=== PATIENT | male | born 1955 | race Caucasian/White ===

== ENCOUNTER 2020-02-06 13:51 | Outpatient (CLI) | payer MEDICARE | END 2020-02-06 13:52 | disposition critical access hospital (66) | LOC: EMS 13:51 | PROVIDERS: ATTEND Surgery | DX: R51 Headache (principal); R11.0 Nausea; R42 Dizziness and giddiness | CPT/HCPCS: A0425; A0427 ==

== ENCOUNTER 2020-02-06 14:19 | Emergency (ER) | payer MEDICARE, OTHER ==
[2020-02-06 15:00] VITALS: BP 184/63
--- NOTE | 2020-02-06 15:09 | ED Physician Documentation ---
PD HPI HEADACHE - Stated complaint Stated Complaint: RUTH - Chief complaint Chief Complaint: Neuro - History obtained from History obtained from: Patient (64-year-old male patient brought in by EMS today for sudden onset headache while at home This occurred twice, rated the pain as 10 on a 10 both times. The first episode occurred, the pain started the top of his head and then went to the front forehead region and into the back of his head, he stated that he felt so uncomfortable that he laid down on his shop floor and covered himself with his jacket until the pain subsided which he said took approximately 25 minutes. He said he then tried to stand up to go about working in his shop and the pain returned the second time. EMS was then called and brought the pt into [facility]. In the ER today presents with a headache now rated 2 out of 10. He is keeping his eyes closed as he states "it just feels better, not because they hurt or the light bothers them". He does admit to some nausea.) Review of Systems Constitutional: denies: Fever, Chills Eyes: denies: Loss of vision, Decreased vision Ears: reports: Reviewed and negative Nose: reports: Reviewed and negative Throat: reports: Reviewed and negative Cardiac: denies: Chest pain / pressure, Palpitations Respiratory: reports: Reviewed and negative GI: reports: Nausea, Vomiting : reports: Reviewed and negative Neurologic: reports: Headache PD PAST MEDICAL HISTORY - Past Medical History Past Medical History: No - Past Surgical History Past Surgical History: No - Allergies Allergies/Adverse Reactions: Allergies Allergy/AdvReac Type Severity Reaction Status Date / Time Bfpqxqp-Qdh-Bqs Reductase Allergy Unknown Verified 02/06/20 14:31 Inhibitor - Social History Does the pt smoke?: No Smoking Status: Never smoker Does the pt drink ETOH?: Yes Does the pt have substance abuse?: No - POLST Patient has POLST: No PD ED PE NORMAL - General General: Alert and oriented X 3, Well developed/nourished, Other - HEENT HEENT: Atraumatic, PERRL, EOMI, Moist mucous membranes - Respiratory Respiratory: No respiratory distress Results - Vitals Vitals: Vital Signs - 24 hr 02/06/20 02/06/20 14:31 14:55 Temperature 36.5 C Heart Rate 74 Respiratory 16 Rate Blood Pressure 173/86 H 184/63 H O2 Saturation 100 Oxygen O2 Source Room air - Labs Labs: Laboratory Tests 02/06/20 02/06/20 02/06/20 15:32 15:32 15:32 WBC 10.5 RBC 4.84 Hgb 14.6 Hct 43.8 MCV 90.5 MCH 30.2 MCHC 33.3 RDW 14.2 Plt Count 272 MPV 10.0 Neut # (Auto) 8.8 H Lymph # (Auto) 1.1 L [place] # (Auto) 0.5 Eos # (Auto) 0.0 Baso # (Auto) 0.1 Absolute Nucleated RBC 0.00 Nucleated RBC % 0.0 PT 12.0 INR 1.1 Sodium 137 Potassium 3.7 Chloride 103 Carbon Dioxide 24 Anion Gap 10.0 BUN 16 Creatinine 1.1 Estimated GFR (MDRD) 67 L Glucose 142 H Calcium 8.9 PD MEDICAL DECISION MAKING - ED course Complexity details: other (While speaking to the patient and his my initial evaluation, the patient became very nauseous and said he was going to vomit. He then proceeded to vomit into a garbage can somewhat projectile. And stated the pain in his head was not increased greatly with the vomiting. He vomited twice at this episode. At this point I decided to order a head CT immediately and IV that included lab work. The patient was immediately rolled into Radiology a head CT was performed and the radiologist came and notified me that immediately that he had a subarachnoid bleed. At this point I went & consulted with Dr. Susie Coelho who agreed to take over care of this patient. ) - Consults Consults: Discussed case with (Dr Abbie Coelho, who agreed to assume care of the pt. ) Departure - Departure Disposition: 02 Transfer Acute Care Hosp Clinical Impression: Subarachnoid hemorrhage Condition: Critical Discharge Date/Time: 02/06/20 16:39
[2020-02-06] MEDS ORDERED: PROMETHAZINE INJ 25 MG in SODIUM CHLORIDE 0.9% 50 ML IV STA (15:36)
[2020-02-06 15:38] LABS: BASOPHILS # (AUTO) 0.1 10^3/uL (0.0-0.1); BASOPHILS % (AUTO) 0.5 %; EOSINOPHILS % (AUTO) 0.2 %; HGB - HEMOGLOBIN 14.6 g/dL (14.0-18.0); LYMPHOCYTES # (AUTO) 1.1 10^3/uL (1.5-3.5); LYMPHOCYTES % (AUTO) 10.6 %; MEAN CORPUSCULAR HEMOGLOBIN 30.2 pg (27.0-31.0); MEAN CORPUSCULAR HGB CONC 33.3 g/dL (32.0-36.0); MEAN CORPUSCULAR VOLUME 90.5 fL (80.0-94.0); MONOCYTES # (AUTO) 0.5 10^3/uL (0.0-1.0); MONOCYTES % (AUTO) 4.8 %; NEUTROPHILS # (AUTO) 8.8 10^3/uL (1.5-6.6); NEUTROPHILS % (AUTO) 83.4 %; PLT - PLATELET COUNT 272 10^3/uL (130-450); RED BLOOD COUNT 4.84 10^6/uL (4.70-6.10); RED CELL DISTRIBUTION WIDTH 14.2 % (12.0-15.0); WHITE BLOOD COUNT 10.5 x10^3/uL (4.8-10.8)
[2020-02-06 15:41] LABS: INR 1.1 (0.8-1.2)
[2020-02-06 15:45] LABS: CALCIUM 8.9 mg/dL (8.5-10.3); CREATININE 1.1 mg/dL (0.6-1.2)
[2020-02-06] MEDS ORDERED: DEXAMETHASONE 10 MG/ML VIAL IV STA (15:54)
--- NOTE | 2020-02-06 15:55 | CT Report ---
Reason: new onset headache, vomiting. Procedure Date: 02/06/2020 Accession Number: [id number] / [id number] Procedure: CT - HEAD WO CPT Code: Final Report FULL RESULT: EXAM: CT HEAD EXAM DATE: 02/06/2020 03:40 PM. CLINICAL HISTORY: New onset headache, vomiting. COMPARISON: None. TECHNIQUE: Multiaxial CT images were obtained from the foramen magnum to the vertex. Reformats: Sagittal and coronal. IV contrast: None. In accordance with CT protocol optimization, one or more of the following dose reduction techniques were utilized for this exam: automated exposure control, adjustment of mA and/or KV based on patient size, or use of iterative reconstructive technique. FINDINGS: Parenchyma: No intraparenchymal hemorrhage. No evidence of mass, midline shift. Benavides-white differentiation is distinct. Extraaxial Spaces: There is hyperdensity outlining the basal cisterns and sulci, consistent with subarachnoid hemorrhage, Hounsfield units approximately 50. A small amount of hemorrhage is seen in the fourth ventricle and prepontine cisterns. No subdural or epidural collections identified. Ventricles: Ventricles are symmetrically prominent with the blood and basal cisterns and fourth ventricle concerning for potential impending obstruction. Sinuses and Orbits: Imaged paranasal sinuses, orbits, and mastoids show no significant abnormality. Bones: No evidence of fracture or calvarial defect. Other: None. IMPRESSION: Acute subarachnoid hemorrhage, possible impending obstructive hydrocephalus. CRITICAL RESULT: The findings were discussed with YEMI Whitaker as well as the supervising ED physician on 02/06/2020 at 3:45 PM. RADIA
[2020-02-06] MEDS ORDERED: MANNITOL 20% 500 ML IV ONE (15:56)
[2020-02-06] MEDS ORDERED: ONDANSETRON 4 MG/2 ML VIAL ONE (16:16)
[2020-02-06] MEDS ORDERED: LABETALOL 20 MG/4 ML SYRINGE IVP STA (16:16)
[2020-02-06] MEDS ORDERED: NICARDIPINE HCL 25 MG in SODIUM CHLORIDE 0.9% 240 ML IV STA (16:19)
[2020-02-06] MEDS ORDERED: ONDANSETRON 4 MG/2 ML VIAL IVP STA (16:32)
== END 2020-02-06 16:39 | disposition short-term general hospital (02) ==
LOC: EDUNIT# → ED 14:19
DX: I60.9 Nontraumatic subarachnoid hemorrhage, unspecified (principal)
CPT/HCPCS: 36415; 70450; 80048; 85025; 85610; 96374; 96375; 99283; 99285; A9270; J7040

== ENCOUNTER 2020-03-18 11:45 | Outpatient (CLI) | payer MEDICARE ==
[2020-03-18] MEDS ORDERED: IOVERSOL 320 100 ML VIAL IVP ONE ×2 (12:07→15:20)
--- NOTE | 2020-03-18 14:28 | CT Report ---
Reason: SUBARACHNOID HEMORRHAGE Procedure Date: 03/18/2020 Accession Number: [id number] / [id number] Procedure: CT - ANGIO HEAD W/WO CPT Code: Final Report FULL RESULT: EXAM: CT ANGIOGRAM HEAD. CT SCAN OF THE HEAD WITHOUT AND WITH CONTRAST. EXAM DATE: 03/18/2020 12:16 PM CLINICAL HISTORY: Subarachnoid hemorrhage. COMPARISON: HEAD W/O 02/06/2020 3:38 PM. TECHNIQUE: - CT Scan Head: Using a multidetector scanner, axial images were acquired from the foramen magnum to the skull vertex prior to and following contrast administration. - CT Angiogram: Using a multidetector scanner, high-resolution axial images were acquired from the skull base through vertex following rapid infusion of intravenous contrast. Reformats: Multiplanar MIP reformats were reconstructed. NASCET criteria used for stenosis measurement. IV Contrast: 80 mL Optiray 320. In accordance with CT protocol optimization, one or more of the following dose reduction techniques were utilized for this exam: automated exposure control, adjustment of mA and/or KV based on patient size, or use of iterative reconstructive technique. FINDINGS: NON-CONTRAST HEAD: Subarachnoid blood seen on the comparison study has resolved. Ventricles have decreased in size. A small amount of encephalomalacia is seen in the right frontal lobe from a ventriculostomy catheter. A small craniotomy defect is seen in the right frontal bone. No intracranial hemorrhage is identified on the current study. Benavides-white matter differentiation is preserved. Retention cyst/polyp formation is seen in the right maxillary sinus and there is left maxillary sinus mucosal thickening. POST-CONTRAST HEAD: No enhancing mass is present in the brain parenchyma. CT ANGIOGRAM HEAD: No high-grade stenosis, filling defect, or occlusion is seen in the proximal aspect of the major intracranial vessels. There is a tiny anterior communicating artery present. No saccular outpouching of contrast is present to suggest an aneurysm. Expected enhancement is seen in the major dural venous sinuses. OTHER: No mass is present in either orbit. No mass is present in the visualized nasopharynx. No mass is present in either visualized parotid gland. IMPRESSION: CT Head: 1. Resolution of subarachnoid blood. 2. Interval improvement in ventriculomegaly. 3. Interval right frontal craniotomy for ventriculostomy catheter placement with a small amount of encephalomalacia seen in the right frontal lobe. CTA Head: 1. No intracranial stenosis. 2. No saccular aneurysm. RADIA
== END 2020-03-18 11:46 | disposition home or self-care (01) ==
LOC: DI 11:45
PROVIDERS: ATTEND Physician Assistant
DX: I60.9 Nontraumatic subarachnoid hemorrhage, unspecified (principal); G93.89 Other specified disorders of brain
CPT/HCPCS: 70496; Q9967

== ENCOUNTER 2024-06-04 12:35 | Observation (INO) | payer MEDICARE ==
--- NOTE | 2024-06-04 14:18 | CT Report ---
PROCEDURE: Head WO INDICATIONS: RUTH, h/o aneurysm TECHNIQUE: Noncontrast 4.5 mm thick angled axial sections acquired from the foramen magnum to the vertex. For r adiation dose reduction, the following was used: automated exposure control, adjustment of mA and/or kV according to patient size. COMPARISON: 03/18/2020. FINDINGS: Image quality: Excellent. CSF spaces: Basal cisterns are patent. No extra-axial fluid collections. Ventricles are normal in size and shape. Brain: No midline shift. No intracranial masses or hemorrhage. Loss of dodge-white differentiation a nd sulcal effacement involving a mild to moderate area of the posterior medial left temporal lobe con sistent with acute infarct. This size of the infarct is approximately 2.0 x 2.5 x 4.3 cm. No associat ed hemorrhage identified. Skull and face: Calvarium and visualized facial bones are intact, without suspicious lesions. Sinuses: Visualized sinuses and mastoids are clear. IMPRESSION: Mild to moderate sized subacute infarct involving the posterior medial left temporal lobe. Consider e mbolic event, either from the anterior posterior circulation. Reviewed by: Kobi Partida MD on 06/04/2024 2:16 PM PDT Approved by: Kobi Partida MD on 06/04/2024 2:16 PM PDT Station ID: [id number]
[2024-06-04 14:32] LABS: BASOPHILS # (AUTO) 0.1 10^3/uL (0.0-0.1); BASOPHILS % (AUTO) 0.8 %; EOSINOPHILS # (AUTO) 0.1 10^3/uL (0.0-0.7); EOSINOPHILS % (AUTO) 1.5 %; HCT - HEMATOCRIT 45.2 % (42.0-52.0); HGB - HEMOGLOBIN 15.1 g/dL (14.0-18.0); LYMPHOCYTES # (AUTO) 1.6 10^3/uL (1.5-3.5); LYMPHOCYTES % (AUTO) 21.8 %; MEAN CORPUSCULAR HEMOGLOBIN 30.2 pg (27.0-31.0); MEAN CORPUSCULAR HGB CONC 33.4 g/dL (32.0-36.0); MEAN CORPUSCULAR VOLUME 90.4 fL (80.0-94.0); MEAN PLATELET VOLUME 9.9 fL (7.4-11.4); MONOCYTES # (AUTO) 0.7 10^3/uL (0.0-1.0); MONOCYTES % (AUTO) 9.4 %; NEUTROPHILS # (AUTO) 4.7 10^3/uL (1.5-6.6); NEUTROPHILS % (AUTO) 66.1 %; PLT - PLATELET COUNT 274 10^3/uL (130-450); RED CELL DISTRIBUTION WIDTH 14.6 % (12.0-15.0); WHITE BLOOD COUNT 7.1 x10^3/uL (4.8-10.8)
[2024-06-04 14:44] LABS: ALBUMIN 4.2 g/dL (3.2-5.5); ALBUMIN/GLOBULIN RATIO 1.8 (1.0-2.2); BILIRUBIN,TOTAL 0.6 mg/dL (0.2-1.0); CALCIUM 9.3 mg/dL (8.5-10.3); POTASSIUM 4.2 mmol/L (3.5-4.5); TOTAL PROTEIN 6.6 g/dL (6.4-8.9)
[2024-06-04] MEDS ORDERED: iohexoL-300 100 ML VIAL ONE (15:05)
--- NOTE | 2024-06-04 15:18 | ED Physician Documentation ---
History of Present Illness - Stated complaint Stated Complaint: CONFUSION,RUTH - Chief complaint Chief Complaint: Neuro - History obtained from History obtained from: Patient, Family - History of Present Illness Pain level max: 0 Pain level now: 0 - Additonal information Additional information: Patient is a 69-year-old male who states that he felt normal last night. He states that this morning when he woke up he tried to read things on his computer but was having trouble understanding the words on the screen. He states he was taking a very long time to comprehend the words. He states he noticed this around 6 AM today. He has a history of intracranial hemorrhage in 2019. Upon review of the records looks like a subarachnoid hemorrhage. He is not on any anticoagulants. No history of stroke. He states that his current symptoms seem like they are better but he is still having trouble reading and processing as quickly as normal. No difficulty speaking. No numbness or tingling. No focal neurological deficits otherwise. Patient states that it feels like the right side of his vision is "fuzzy". Review of Systems Constitutional: denies: Fever, Chills Respiratory: denies: Cough GI: denies: Vomiting, Diarrhea Skin: denies: Rash Musculoskeletal: denies: Neck pain, Back pain Neurologic: denies: Focal weakness, Numbness PD PAST MEDICAL HISTORY - Past Medical History Past Medical History: Yes Cardiovascular: Hypertension Neuro: Other - Past Surgical History Past Surgical History: No Neuro: Other - Present Medications Home Medications: Ambulatory Orders Medication Instructions Recorded Confirmed Doxycycline [Vibramycin] 25 mg PO QD 06/04/24 06/04/24 Losartan [Cozaar] 50 mg PO DAILY 06/04/24 06/04/24 - Allergies Allergies/Adverse Reactions: Allergies Allergy/AdvReac Type Severity Reaction Status Date / Time Nbelxgh-QKQ-LfO Reductase Allergy Unknown Verified 06/04/24 14:46 Inhibitor [Ypuburb-Jcj-Ugt Reductase Inhibitor] - Social History Does the pt smoke?: No Smoking Status: Never smoker Does the pt drink ETOH?: Yes Does the pt have substance abuse?: No - Immunizations Immunizations are current?: Yes - POLST Patient has POLST: No PD ED PE NORMAL - Vitals Vital signs reviewed: Yes - General General: Alert and oriented X 3, No acute distress - HEENT HEENT: PERRL, Ears normal, Moist mucous membranes, Pharynx benign - Neck Neck: Supple, no meningeal sign - Cardiac Cardiac: RRR, No murmur, Strong equal pulses - Respiratory Respiratory: No respiratory distress, Clear bilaterally - Abdomen Abdomen: Soft, Non tender, Non distended - Derm Derm: Warm and dry - Extremities Extremities: No edema, No calf tenderness / cord - Neuro Neuro: Alert and oriented X 3, business intern 2-12 intact, No motor deficit, No sensory deficit, Normal speech Eye Opening: Spontaneous Motor: Obeys Commands Verbal: Oriented GCS Score: 15 - Psych Psych: Normal mood, Normal affect Results - Vitals Vitals: Vital Signs - 24 hr 06/04/24 06/04/24 06/04/24 12:57 14:06 14:30 Temperature 36.8 C Heart Rate 69 67 73 Respiratory 16 14 16 Rate Blood Pressure 180/88 H 171/84 H 171/92 H O2 Saturation 98 98 98 06/04/24 06/04/24 06/04/24 15:30 16:00 16:30 Temperature Heart Rate 77 73 70 Respiratory 18 15 16 Rate Blood Pressure 171/84 H 172/95 H 164/85 H O2 Saturation 99 96 96 06/04/24 06/04/24 17:00 17:30 Temperature Heart Rate 67 68 Respiratory 14 15 Rate Blood Pressure 165/87 H O2 Saturation 94 95 Oxygen O2 Source Room air - EKG (time done) 1439 EKG releavant findings:: EKG personally interpreted by author of this note. Relevant findings are: Rate: Rate (enter#) (64) Rhythm: NSR [place]: Normal Intervals: Normal MS QRS: Normal Ischemia: Normal ST segments - Labs Labs: Laboratory Tests 06/04/24 06/04/24 06/04/24 14:26 14:26 17:13 WBC 7.1 RBC 5.00 Hgb 15.1 Hct 45.2 MCV 90.4 MCH 30.2 MCHC 33.4 RDW 14.6 Plt Count 274 MPV 9.9 Neut # (Auto) 4.7 Lymph # (Auto) 1.6 [place]th[place]w # (Auto) 0.7 Eos # (Auto) 0.1 Baso # (Auto) 0.1 Absolute Nucleated RBC 0.00 Nucleated RBC % 0.0 Sodium 138 Potassium 4.2 Chloride 105 Carbon Dioxide 29 Anion Gap 4.0 L BUN 15 Creatinine 1.0 Estimated GFR (MDRD) 74 L Glucose 106 H Calcium 9.3 Total Bilirubin 0.6 AST 16 ALT 16 Alkaline Phosphatase 60 Total Protein 6.6 Albumin 4.2 Globulin 2.4 Albumin/Globulin Ratio 1.8 Lipase 15 Urine Color YELLOW Urine Clarity CLEAR Urine pH 6.5 Ur Specific [place] 1.010 Urine Protein NEGATIVE Urine Glucose (UA) NEGATIVE Urine Ketones NEGATIVE Urine Occult Blood NEGATIVE Urine Nitrite NEGATIVE Urine Bilirubin NEGATIVE Urine Urobilinogen 0.2 (NORMAL) Ur Leukocyte Esterase NEGATIVE Ur Microscopic Review NOT INDICATED Urine Culture Comments NOT INDICATED - Rads (name of study) Head CT Relevant Findings:: Final report received, See rad report CT angiogram head and neck Relevant Findings:: Final report received, See rad report Brain MRI Relevant Findings:: Final report received, See rad report PD Medical Decision Making - ED course Complexity details: reviewed results, re-evaluated patient, considered differential, d/w patient, d/w family, d/w j2ee consultant ED course: Patient is a 69-year-old male who presents with difficulty reading today. Also has blurriness to the right lateral visual field. His last known normal was last night before bed. He is outside of the 3 and 4-1/2-hour window is prior to arrival in the emergency department. No LVO on CT angiogram head and neck. His brain MRI confirms an acute stroke. Discussed the case with telestroke, Dr. Romero, reviewed the patient's history and CT/MRI findings. Recommend starting the patient on aspirin and a statin. We did review the patient's history of a subarachnoid hemorrhage as well. The patient has an allergy to statins as they cause muscle pain. Therefore a statin was not started. The patient was started on an aspirin. Neurology recommends placing the patient in the hospital for serial neurological exams and an echocardiogram tomorrow as well as the normal stroke evaluation. Discussed the case with the hospitalist, who accepts. This document was made in part using voice recognition software. While efforts are made to proofread this document, sound alike and grammatical errors may occur. Departure - Departure Disposition: ED Place in Observation Clinical Impression: Cerebrovascular accident (CVA) Qualifiers: CVA mechanism: unspecified Qualified Code(s): I63.9 - Cerebral infarction, unspecified Condition: Stable Discharge Date/Time: 06/04/24 19:07 NIHSS - Time Time: 15:02 - Level of Consciousness Level of consciousness: (0) Alert, Keenly responsive LOC Questions: (0) Answers both Q's correct LOC Commands: (0) Performs both correctly - Gaze Best Gaze: (0) Normal - Visual Visual: (0) No loss - Facial Palsy Facial Palsy: (0) Normal, symmetrical movement - Motor Arms (both separate) Motor Arm (right): (0) No drift Motor Arm (left): (0) No drift - Motor Legs (both separate) Motor Leg (right): (0) No drift Motor Leg (left): (0) No drift - Limb Ataxia Limb Ataxia: (0) Absent - Sensory Sensory: (0) Normal - Best Language Best Language: (1) [id number] - Dysarthria Dysarthria: (0) Normal - Extinction and Inattention (formally neg Extinction and inattention: (0) No abnormality - Total Score/Results Total Score/Result: 1
--- NOTE | 2024-06-04 16:40 | MRI Report ---
PROCEDURE: Brain WO INDICATIONS: posteromedial subacute infact L temp lobe, on CT TECHNIQUE: Noncontrast axial T1 spin echo, axial T2 fast spin echo, sagittal and axial FLAIR, coronal T2 fast sp in echo, axial gradient echo, axial diffusion and ADC through the brain. COMPARISON: CT head from the same day. FINDINGS: Image quality: Excellent. CSF Spaces: Basal cisterns are patent. No extra-axial fluid collections. Ventricles are normal in size and shape. Brain: No intracranial masses or hemorrhage. Benavides/white matter interface is normal. Brainstem appe ars normal. There is a small para midline medial right PICA distribution acute infarct with restricte d water diffusion noted on axial image 28 of series 7. This area of acute infarct measures approximat celio 1.6 x 0.6 cm. There is restricted water diffusion consistent with consistent with acute infarct i nvolving the posterior medial left temporal lobe, images 32 through 35 of diffusion weighted sequence 7. For instance, restricted diffusion abnormality measures 2.5 x 5.3 cm on image 33. There is very m ild associated cytotoxic edema. In these 2 locations. No chronic ischemic insults. Age-related volume loss and mild small vessel ischemic change. Normal intravascular flow voids are present. Skull and face: Calvarium has normal marrow signal. Orbits appear normal. Sinuses: Dependent soft tissue in the maxillary sinuses, right greater than left. IMPRESSION: 1. Acute infarcts in the left posterior medial temporal lobe and medial inferior right cerebellum. 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 2. Age-related volume loss and mild small vessel ischemic change. Reviewed by: Kobi Partida MD on 06/04/2024 4:38 PM PDT Approved by: Kobi Partida MD on 06/04/2024 4:38 PM PDT Station ID: [id number]
--- NOTE | 2024-06-04 16:56 | CT Report ---
PROCEDURE: Angio Head/Neck INDICATIONS: posteromedial subacute infact L temp lobe, on CT TECHNIQUE: After the administration of intravenous contrast, 1 mm thick sections acquired from the aortic arch t hrough the [place]. 3-dimensional aqvyqng-vmuuwzido-nslzxxffuj (MIP) and/or volume renderin g reformats were acquired of the central intracranial vasculature and neck separately. For radiation dose reduction, the following was used: automated exposure control, adjustment of mA and/or kV acco rding to patient size. CONTRAST: Omni 300 80ml COMPARISON: Brain MRI from the same date, CT head from the same date, CT angiogram of the head with and without contrast dated 03/18/2020. FINDINGS: Image quality: Diagnostic. HEAD CT: CSF Spaces: Basal cisterns are patent. No extra-axial fluid collections. Ventricles are normal in size and shape. Brain: Based on the previous CT had and brain MRI, there is documentation of acute infarction the pos terior medial left temporal lobe as well as in the inferomedial right cerebellar hemisphere. Skull and face: Calvarium and visualized facial bones appear intact, without suspicious lesions. Sinuses: Visualized sinuses and mastoids are clear. HEAD CT ANGIOGRAPHY: Anterior circulation: Intracranial internal carotid arteries are normal in size and flow. The flow within the paired anterior cerebral arteries is normal and symmetric. The flow within the middle cer ebral arteries is normal and symmetric. The anterior communicating artery is seen. No aneurysms are seen. Posterior circulation: Although the previous angiogram from 03/18/2020 did not include the arteries in the neck, the distal right vertebral artery was relatively symmetric to the distal left vertebral ar evaristo. Now the distal right vertebral artery is diminutive. Proximally, the vertebral artery is occlud ed (not previously evaluated). The distal left vertebral artery is dominant and patent. 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 Flow within the posterior cerebral arteries is normal and symm etric. No aneurysms are seen. NECK CT ANGIOGRAPHY: Carotid system: The great vessels demonstrate a conventional anatomy as they arise from the aortic a rch. The origins of the common carotid arteries appear patent. The common carotid arteries demonstr ate normal caliber and courses. The bifurcation regions are both widely patent. The internal caroti d arteries demonstrate normal calibers and courses. Posterior circulation: The right vertebral artery is occluded at its origin. It is again visualized a t the level of the mid dens, and is diminutive more superiorly. The left vertebral artery is widely p atent dominant vessel. Joint to form a mildly diseased basilar artery. Soft tissues: Visualized neck soft tissues demonstrate no suspicious abnormalities. Bones: No suspicious bony lesions. Visualized cervical spine appears normally aligned. IMPRESSION: 1. Findings are consistent with the right vertebral artery from its origin. This is of uncertain acui ty. There is reconstitution of the distal vertebral artery at the mid dens. The left vertebral artery is widely patent. 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 2. The left vertebral artery is widely patent. 3.. Posterior distribution acute infarcts involving the posterior medial left temporal lobe and the i nferomedial right cerebellum 4. Patent carotids The estimate of stenosis included in the report of the imaging study was calculated using the NASCET method Reviewed by: Kobi Partida MD on 06/04/2024 4:54 PM PDT Approved by: Kobi Partida MD on 06/04/2024 4:54 PM PDT Station ID: [id number]
[2024-06-04] MEDS: iohexoL-300 100 ML VIAL IVP ONE (17:10)
[2024-06-04 17:21] LABS: BILIRUBIN,URINE NEGATIVE (NEGATIVE); GLUCOSE, URINE (UA) NEGATIVE (NEGATIVE); KETONES,URINE (UA) NEGATIVE (NEGATIVE); LEUKOCYTE ESTERASE, URINE NEGATIVE (NEGATIVE); NITRITE,URINE NEGATIVE (NEGATIVE); OCCULT BLOOD,URINE NEGATIVE (NEGATIVE); PH,URINE 6.5 PH (5.0-7.5); PROTEIN,URINE NEGATIVE (NEGATIVE); UROBILINOGEN,URINE 0.2 (NORMAL) E.U./dL (NORMAL)
[2024-06-04 17:24] LABS: CLARITY,URINE CLEAR (CLEAR)
[2024-06-04] MEDS: ASPIRIN CHEW 81 MG TABLET PO STA (17:26)
[2024-06-04] MEDS ORDERED: SODIUM CHLORIDE FLUSH 0.9% 10 ML SYRINGE IVP PRN (18:08)
[2024-06-04] MEDS ORDERED: ONDANSETRON ODT 4 MG TABLET TL PRN (18:08)
[2024-06-04] MEDS ORDERED: ACETAMINOPHEN 325 MG TABLET PO PRN (18:08)
[2024-06-04] MEDS ORDERED: LABETALOL 20 MG/4 ML SYRINGE IVP PRN (18:17)
--- NOTE | 2024-06-04 18:22 | HISTORY & PHYSICAL EXAMINATION ---
Chief Complaint - Chief Complaint Chief Complaint: Difficulty reading History of Present Illness - Admitted From Admitted From:: ED - History Obtained From History obtained from: PAtient and Exam Limitations: none - History of Present Illness HPI Comment/Other: 69-year-old male who went to bed last night feeling normal then woke up this morning and started to read on his computer as he usually does and realized that he had trouble understanding the words. This happened about 6:00 this morning he went on with spoke to his daughter about it later today and she convinced him that he should come to the hospital for evaluation. He has had a slight headache in the frontal part of his head today but otherwise has been feeling fine he is not having any difficulties with his vision he is not having any dizziness he is not having any ataxia. History - Past Medical History Cardiovascular: reports: Hypertension Respiratory: reports: None Neuro: reports: Other ( Subarachnoid hemorrhage in 2019. Etiology of this hem orrhage was never determined. Not associated with trauma. Not associated with uncontrolled hypertension) Endocrine/Autoimmune: reports: None GI: reports: None : reports: None HEENT: reports: Other ( takes doxycycline for periodontal disease.) Psych: reports: None Musculoskeletal: reports: Osteoarthritis Derm: reports: None MRSA Hx?: No - Past Surgical History Ortho: reports: Shoulder arthroplasty ( 4 months ago.) Neuro: reports: Other ( Subarachnoid hemorrhage, probable placement of external ventricular drain. Did not require SHOP [employer]EL[employer] shunting.) - Family & Social History Family History: Father: (blood vessel problem in his neck Severe done) Living arrangement: At home Living Situation: With spouse/s.o. 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 Smoked 1 pack/day from the age of 14 to the age of 24 equating to a [id number] history - POLST Patient has POLST: No POLST Status: Full Code Meds/Allgy - Home Medications Home Medications: Ambulatory Orders Medication Instructions Recorded Confirmed Doxycycline [Vibramycin] 25 mg PO QD 06/04/24 06/04/24 Losartan [Cozaar] 50 mg PO DAILY 06/04/24 06/04/24 - Allergies Allergies/Adverse Reactions: Allergies Allergy/AdvReac Type Severity Reaction Status Date / Time Ngoskxn-FXE-YsL Reductase Allergy Unknown Verified 06/04/24 14:46 Inhibitor [Eglqtyc-Kfw-Yyw Reductase Inhibitor] Review of Systems - Constitutional Constitutional: denies: Fatigue, Fever - Eyes Eyes: denies: Pain, Spots in vision, Field loss, Vision loss, Dipolpia - Ears, Nose & Throat Ears, Nose & Throat: denies: Ear pain, Tinnitus - Cardiovascular Cariovascular: denies: Irregular heart rate, Palpitations, Chest pain, Edema, Lightheadedness, Syncope - Respiratory Respiratory: denies: Cough - Gastrointestinal Gastrointestinal: denies: Abdominal pain - Genitourinary Genitourinary: denies: Dysuria, Frequency - Musculoskeletal Musculoskeletal: denies: Muscle pain - Integumentary Integumentary: denies: Rash - Neurological Neurological: reports: Headache ( mild frontal headache this afternoon), Other ( difficulty reading) - Psychiatric Psychiatric: denies: Depression - Hematologic/Lymphatic Hematologic/Lymphatic: denies: Anemia - All Other Systems All Other Systems: reports: Reviewed and negative Prior Level of Functionality: independent in all activities Exam - Vital Signs Vital Signs: Vital Signs x48h Temp Pulse Resp BP Pulse Ox 06/04/24 17:30 68 15 95 06/04/24 17:00 67 14 165/87 H 94 06/04/24 16:30 70 16 164/85 H 96 06/04/24 16:00 73 15 172/95 H 96 06/04/24 15:30 77 18 171/84 H 99 06/04/24 14:30 73 16 171/92 H 98 06/04/24 14:06 67 14 171/84 H 98 06/04/24 12:57 36.8 C 69 16 180/88 H 98 - Physical Exam General Appearance: positive: No acute distress Eyes Bilateral: positive: Normal inspection, PERRL, EOMI ENT: positive: ENT inspection nml Neck: positive: Nml inspection, No JVD, Trachea midline Respiratory: positive: No respiratory distress, Breath sounds nml Cardiovascular: positive: Regular rate & rhythm Peripheral Pulses: positive: 2+ Abdomen: positive: Non-tender Skin: positive: Color nml Extremities: positive: Non-tender, Full ROM Neurologic/Psychiatric: positive: Oriented x3, CN's nml (2-12), Motor nml, Sensation nml, Mood/affect nml, Other (occasionally forgets minor details when discussing events) Conclusion/Plan - Problem List (1) Cerebrovascular accident (CVA) Conclusion/Plan: Left medial temporal lobe with acute onset of symptoms at 0600. secondary stroke prevention with ASA rule out causes of CVA such as cardiac arrhythmia, valvular heart disease. Patient will be placed on telemetry. Echocardiogram has been ordered. There is suggestion of atherosclerotic disease on CTA of the head and neck. Qualifiers: CVA mechanism: unspecified Qualified Code(s): I63.9 - Cerebral infarction, unspecified (2) Hypertension Conclusion/Plan: Takes Losartan 50 mg daily, usually takes this in the PM. I have ordered this for him here. (3) Hyperlipidemia Conclusion/Plan: previously intolerant of statin medication. We will discuss use of gemfibrozil with the patient, as this might be an option. (4) Subarachnoid hemorrhage Conclusion/Plan: 4 years ago patient suffered a subarachnoid hemorrhage. Was hospitalized at [facility] for 13 days. It sounds as if he had an external ventricular drain placed, the hemorrhage resolved and he did not require shunting. The cause of the hemorrhage was never identified. Emergency department MD has consulted with telestroke who recommends aspirin. - Lab Results Fish Bones: 06/04/24 14:26 06/04/24 14:26 - Diagnostic Imaging Results Diagnostic Imaging Results: positive: Final report reviewed Diagnostic Imaging Results Comments: CTA of the head small amount of encephalomalacia in the right frontal lobe where the external ventricular drain catheter was passed. No aneurysm is seen on the CTA of the head CT of the head mild to moderate size subacute infarct involving the posterior medial left temporal lobe. CTA of the neck shows normal carotid arteries. 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 - EKG Results EKG Interpreted Independently: No EKG Findings: Sinus rhythm. Patient is in sinus rhythm on the monitor in the emergency department as I am speaking with him
--- NOTE | 2024-06-04 18:38 | PHARMACY PROGRESS NOTE ---
- Best Possible Medication History Admit Date and Time: 06/04/24 1809 Processed by: Pharmacy Medications reviewed in ED?: Yes Medication History completed: Yes Patient Interview: Completed Secondary Source(s): Insurance records (Medication reconciliation completed by deliverer pharmacy, Jay Arteaga ) As the person ultimately responsible for medication therapy, providers are able to order a medication from an existing home medication list in [facility] via the "Reconcile Routine" prior to Confirmation of that medication by family support coordinator. Such practice is discouraged except when the physician, in their clinical judgment, deems that a medical need exists for a medication without regard to previous use.
[2024-06-04] MEDS: LOSARTAN 50 MG TABLET PO ONE (19:27)
[2024-06-05] MEDS: SODIUM CHLORIDE FLUSH 0.9% 10 ML SYRINGE IVP SCH (00:50)
[2024-06-05 08:17] VITALS: O2SAT 92
[2024-06-05] MEDS: ENOXAPARIN 40 MG/0.4 ML SYRINGE SUBQ SCH (10:02)
[2024-06-05] MEDS: ASPIRIN EC 81 MG TABLET PO SCH (10:02)
[2024-06-05] MEDS: LOSARTAN 50 MG TABLET PO SCH (10:02)
--- NOTE | 2024-06-05 13:04 | Discharge Plan ---
Discharge Plan Problem Reviewed?: Yes Disposition: Home, Self Care Condition: Good Prescriptions: Aspirin EC [Ecotrin] 81 mg PO DAILY #90 tab Ezetimibe [Zetia] 10 mg PO DAILY #90 tablet Diet: Cardiac Activity Restrictions: No Restrictions Shower Restrictions: No Driving Restrictions: No Instruction Topics: Stroke Ischemic Health Concerns: you came into the hospital several hours after you had a stroke. We consulted with a neurologist from the emergency room to make sure there was not any acute intervention that could be done. Because of the number of hours that had passed our efforts are focused on preventing a second stroke. Technical information about your stroke is that it happened in the distribution of the left middle cerebral artery in the part of your brain called the cerebellum. 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 There is nothing that needs to be done about this. You have other blood vessels that we will do the work of this blood vessel. I do not think that that contributed to your stroke. We kept you on a heart monitor overnight to monitor for any abnormalities in your heart that could have contributed to a stroke. this looked good. You also got an ultrasound on your heart this morning and the preliminary read shows that there are no abnormalities of the valves in your heart that could have contributed to a stroke. For prevention of a second stroke we are recommending that you take aspirin every day. We know that you cannot take statin medication but there is a different kind of cholesterol medication called Zetia that I have written a prescription for. This would be a good medication to take to try to reduce your LDL cholesterol which can help with stroke prevention. The main thing that might help you in recovering from this stroke is working with a speech pathologist. I know that you do not have a speech deficit but th [place] can help with problems with communication and specifically with your difficulties in reading. You need to have jael that your brain will learn what it needs to learn. [place] a [place] from your primary care doctor you can probably work with 1 through telehealth. [facility] is a type of service that is usually covered by insurance and may get you access to this type of therapist. Plan of Treatment: Michelle Morgan. healthy lifestyle Care Goals: prevention of another stroke. No Smoking: If you smoke, Please STOP! Call for help.
--- NOTE | 2024-06-05 13:42 | DISCHARGE SUMMARY ---
"Discharge Summary Admit Date: 06/04/24 Discharge Date: 06/05/24 Discharging Provider: Mar Muro PA-C Code Status: Attempt Resuscitation Condition at Discharge: Good Discharge Disposition: 01 Home, Self Care - DIAGNOSES Admission Diagnoses: CVA Hypertension Hyperlipidemia history of subarachnoid hemorrhage Discharge Diagnoses with Status of Each Condition: Cerebrovascular accident (CVA) Conclusion/Plan: Left medial temporal lobe with acute onset of symptoms about 9 hours prior to presentation in the ED. secondary stroke prevention with ASA seconadary causes of CVA such as cardiac arrhythmia, valvular heart disease were ruled out. he had an echocardiogram completed and was monitored on telemetry without arrhythmia. Normal left ventricular size and function with EF at 60%. Normal valve structure and function. There is suggestion of atherosclerotic disease on CTA of the head and neck. occluded right vertebral artery but otherwise no significant stenosis. 2) Hypertension Conclusion/Plan: Takes Losartan 50 mg daily, restarted on dc. (3) Hyperlipidemia Conclusion/Plan: previously intolerant of statin medication. discharged home on zetia for secondary stroke prevention. . (4) Subarachnoid hemorrhage Conclusion/Plan: 4 years ago patient suffered a subarachnoid hemorrhage. Was hospitalized at [facility] for 13 days. It sounds as if he had an external ve ntricular drain placed, the hemorrhage resolved and he did not require shunting. The cause of the hemorrhage was never identified. Emergency department MD was consulted with telestroke who recommends aspirin. - HPI History of Present Illness: From my admission H&P: 69-year-old male who went to bed last night feeling normal then woke up this mo rning and started to read on his computer as he usually does and realized that he had trouble understanding the words. This happened about 6:00 this morning he went on with spoke to his daughter about it later today and she convinced him that he should come to the hospital for evaluation. He has had a slight headache in the frontal part of his head today but otherwise has been feeling fine he is not having any difficulties with his vision he is not having any dizziness he is not having any ataxia. - CONSULTS | PROCEDURES Consultations: Telestroke neurology from ED Procedures: Head CT Brain MRI CTA head and neck EKG Echocardiogram - HOSPITAL COURSE Hospital Course: Admitted with acute CVA of the left medial temporal lobe, not candidate for tPA therapy due to length of symptoms. No large vessel occlusion. Telehealth was consulted from the emergency department. He was transferred to the floor and workup was completed with telemetry monitoring and echocardiogram. He was mildly hypertensive, and home losartan was restarted. Remained stable, was seen by PT and OT prior to discharge and cleared for home. Continue to have difficulty with reading and reading comprehension. He will follow-up with his primary care provider and seek outpatient speech-language pathology services for stroke rehab. He was started on Zetia medication as he is intolerant of statins. He was started on aspirin 81 mg daily. - ALLERGIES Allergies/Adverse Reactions: Allergies Allergy/AdvReac Type Severity Reaction Status Date / Time Rdiaprm-ZPE-NrC Reductase Allergy Unknown Verified 06/04/24 14:46 Inhibitor [Waxkske-Dln-Ilu Reductase Inhibitor] - MEDICATIONS Home Medications: Ambulatory Orders Medication Instructions Recorded Confirmed Doxycycline [Vibramycin] 25 mg PO QD 06/04/24 06/04/24 Losartan [Cozaar] 50 mg PO DAILY 06/04/24 06/04/24 Aspirin EC [Ecotrin] 81 mg PO DAILY #90 tab 06/05/24 Ezetimibe [Zetia] 10 mg PO DAILY #90 tablet 06/05/24 - PHYSICAL EXAM AT DISCHARGE General Appearance: positive: No acute distress, Alert Eyes Bilateral: positive: Normal inspection ENT: positive: ENT inspection nml Neck: positive: Nml inspection Respiratory: positive: Breath sounds nml Cardiovascular: positive: Regular rate & rhythm Peripheral Pulses: positive: 2+ Abdomen: positive: No distention Skin: positive: Color nml Extremities: positive: Non-tender Neurologic/Psychiatric: positive: Oriented x3, CN's nml (2-12), Motor nml, Sensation nml, Mood/affect nml. negative: Facial droop, Slurred/abnml speech - LABS Result Diagrams: 06/04/24 14:26 06/04/24 14:26 - FOLLOW UP Follow Up: PCP- Mar Santos. Will need assistance engaging with community based IMPLEMENTATION SERVICES ANALYST services. - TIME SPENT Time Spent in Discharge (Minutes): 30"
[2024-06-05 13:52] VITALS: BP 152/91
== END 2024-06-05 14:20 | disposition home or self-care (01) ==
LOC: ED 12:35 → MS2 18:09
PROVIDERS: ADMIT Physician Assistant Medical; ATTEND Physician Assistant Medical
DX: I63.9 Cerebral infarction, unspecified (principal); I10 Essential (primary) hypertension; E78.5 Hyperlipidemia, unspecified; Z86.79 Personal history of other diseases of the circulatory system; I65.01 Occlusion and stenosis of right vertebral artery; Z87.891 Personal history of nicotine dependence
CPT/HCPCS: 36415; 70450; 70496; 70498; 70551; 80053; 81003; 83690; 85025; 93005; 93307; 96372; 97116; 97162; 97166; 99285; A9270; G0378; J1650; Q9967; 81001; 87086

== ENCOUNTER 2024-06-06 13:40 | Emergency (ER) | payer MEDICARE ==
[2024-06-06 14:20] LABS: BASOPHILS # (AUTO) 0.1 10^3/uL (0.0-0.1); BASOPHILS % (AUTO) 0.6 %; EOSINOPHILS # (AUTO) 0.1 10^3/uL (0.0-0.7); EOSINOPHILS % (AUTO) 0.7 %; HCT - HEMATOCRIT 45.1 % (42.0-52.0); HGB - HEMOGLOBIN 14.5 g/dL (14.0-18.0); LYMPHOCYTES # (AUTO) 1.4 10^3/uL (1.5-3.5); LYMPHOCYTES % (AUTO) 17.2 %; MEAN CORPUSCULAR HEMOGLOBIN 28.9 pg (27.0-31.0); MEAN CORPUSCULAR HGB CONC 32.2 g/dL (32.0-36.0); MEAN CORPUSCULAR VOLUME 89.8 fL (80.0-94.0); MEAN PLATELET VOLUME 9.7 fL (7.4-11.4); MONOCYTES # (AUTO) 0.6 10^3/uL (0.0-1.0); NEUTROPHILS # (AUTO) 5.9 10^3/uL (1.5-6.6); NEUTROPHILS % (AUTO) 74.1 %; PLT - PLATELET COUNT 279 10^3/uL (130-450); RED BLOOD COUNT 5.02 10^6/uL (4.70-6.10); RED CELL DISTRIBUTION WIDTH 14.8 % (12.0-15.0)
[2024-06-06 14:35] LABS: ALBUMIN 4.2 g/dL (3.2-5.5); ALBUMIN/GLOBULIN RATIO 1.5 (1.0-2.2); BILIRUBIN,TOTAL 0.7 mg/dL (0.2-1.0); CALCIUM 9.3 mg/dL (8.5-10.3); MAGNESIUM 1.9 mg/dL (1.7-2.3)
[2024-06-06 14:49] LABS: THYROID STIMULATING HORMONE 2.45 uIU/mL (0.34-5.60)
--- NOTE | 2024-06-06 15:00 | CT Report ---
PROCEDURE: Head WO INDICATIONS: imbalanced, recent CVA TECHNIQUE: Noncontrast 4.5 mm thick angled axial sections acquired from the foramen magnum to the vertex. For r adiation dose reduction, the following was used: automated exposure control, adjustment of mA and/or kV according to patient size. COMPARISON: Brain MRI dated 06/04/2024, head CT dated 06/04/2024. FINDINGS: Image quality: Excellent. CSF spaces: Basal cisterns are patent. No extra-axial fluid collections. Ventricles are normal in size and shape. Brain: No midline shift. There is evolution of a left posterior medial temporal lobe infarct with in creased edema and a degree of mass effect on the posterior horn of the left lateral ventricle. The ar ea of previous acute medial inferior left cerebellar infarct has mild associated change visible on th e current CT. Additionally, more laterally in the inferior right cerebellum there is now clearly pres ent edema consistent with a subacute infarct, also of the right PICA distribution. This suggests wide ethan of the area of infarct. There is no evidence of hemorrhagic transformation. An old focal wedge-s haped right inferior cerebellar infarct is also present. Skull and face: Calvarium and visualized facial bones are intact, without suspicious lesions. Sinuses: Visualized sinuses and mastoids are clear. IMPRESSION: 1. Expected evolution of subacute left posterior medial temporal lobe infarct with increased cytotoxi c edema and development of some mass effect on the posterior horn of the left lateral ventricle. 2. Interval widening of the territory of a right echo distribution inferior right cerebellar infarct, also subacute. Reviewed by: Kobi Partida MD on 06/06/2024 2:59 PM PDT Approved by: Kobi Partida MD on 06/06/2024 2:59 PM PDT Station ID: [id number]
--- NOTE | 2024-06-06 15:43 | ED Physician Documentation ---
History of Present Illness - Stated complaint Stated Complaint: DIZZINESS,N/V,UNBALANCED - Chief complaint Chief Complaint: Neuro - Additonal information Additional information: 69-year-old male with history of hypertension, [place], osteoarthritis presents emergency department for dizziness and difficulty ambulating. Awoke this am around 0530 with severe dizziness which cued nausea and vomiting. Any head movement triggered dizziness episode. Brain aneurysm 2019, TIA Tuesday was admitted for a couple days, with that TIA he had difficulty reading and and some vision changes. Pt unsure if this feels similar. is at bedside and says pt doesnt seem like he seemed with his TIA. Symptoms now have fully resolved, no dizziness, no nausea, no vomiting. He was recently started on anti-cholesterol medications. Pt says when he was walking he was leaning heavily to the left. Symptoms now have fully resolved. These symptoms lasted about 1 hr and then he went to bed, awoke with symptoms resolved. PD PAST MEDICAL HISTORY - Past Medical History Past Medical History: Yes Cardiovascular: Hypertension, [place] Respiratory: None Neuro: Other Endocrine/Autoimmune: None GI: None : None HEENT: Other Psych: None Musculoskeletal: Osteoarthritis Derm: None - Past Surgical History Past Surgical History: Yes Ortho: Shoulder arthroplasty Neuro: Other - Present Medications Home Medications: Ambulatory Orders Medication Instructions Recorded Confirmed Doxycycline [Vibramycin] 25 mg PO QD 06/04/24 06/04/24 Losartan [Cozaar] 50 mg PO DAILY 06/04/24 06/04/24 Aspirin EC [Ecotrin] 81 mg PO DAILY #90 tab 06/05/24 06/06/24 Ezetimibe [Zetia] 10 mg PO DAILY #90 tablet 06/05/24 - Allergies Allergies/Adverse Reactions: Allergies Allergy/AdvReac Type Severity Reaction Status Date / Time Ecinzix-WCX-WfX Reductase Allergy Unknown Verified 06/06/24 14:00 Inhibitor [Rfebkzc-Qiz-Gbs Reductase Inhibitor] - Social History Does the pt smoke?: No Smoking Status: Never smoker Does the pt drink ETOH?: Yes Does the pt have substance abuse?: No - Immunizations Immunizations are current?: Yes - POLST Patient has POLST: No POLST Status: Full Code PD ED PE NORMAL - Vitals Vital signs reviewed: Yes - General General: Alert and oriented X 3, No acute distress, Well developed/nourished - HEENT HEENT: Atraumatic, PERRL - Neck Neck: Supple, no meningeal sign - Cardiac Cardiac: RRR - Respiratory Respiratory: No respiratory distress, Clear bilaterally - Back Back: No CVA TTP, No spinal TTP - Derm Derm: Normal color, Warm and dry, No rash - Extremities Extremities: No edema, No calf tenderness / cord - Neuro Neuro: Alert and oriented X 3, 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 No: Dyscongugate gaze, Nystagmus, Normal gait (mild unsteadiness with ambulation) Results - Vitals Vitals: Vital Signs - 24 hr 06/06/24 06/06/24 06/06/24 13:42 13:58 16:25 Temperature 36.4 C L Heart Rate 74 68 Respiratory 16 16 18 Rate Blood Pressure 138/85 H 162/73 H O2 Saturation 96 95 06/06/24 06/06/24 18:00 21:27 Temperature Heart Rate 68 67 Respiratory 16 14 Rate Blood Pressure 149/88 H 141/84 H O2 Saturation 95 95 Oxygen O2 Source Room air - Labs Labs: Laboratory Tests 06/06/24 06/06/24 14:17 14:17 WBC 8.0 RBC 5.02 Hgb 14.5 Hct 45.1 MCV 89.8 MCH 28.9 MCHC 32.2 RDW 14.8 Plt Count 279 MPV 9.7 Neut # (Auto) 5.9 Lymph # (Auto) 1.4 L [place] # (Auto) 0.6 Eos # (Auto) 0.1 Baso # (Auto) 0.1 Absolute Nucleated RBC 0.00 Nucleated RBC % 0.0 Sodium 138 Potassium 4.0 Chloride 105 Carbon Dioxide 29 Anion Gap 4.0 L BUN 16 Creatinine 1.0 Estimated GFR (MDRD) 74 L Glucose 138 H Calcium 9.3 Magnesium 1.9 Total Bilirubin 0.7 AST 15 ALT 18 Alkaline Phosphatase 57 Total Protein 7.0 Albumin 4.2 Globulin 2.8 Albumin/Globulin Ratio 1.5 Lipase 11 TSH 2.45 - Rads (name of study) Head CT without Relevant Findings:: Final report received, EMP independent interpretation of test, Other (Expected evolution of subacute left posterior Medial temporal lobe infarct with increased cytotoxic edema. Interval widening of the territory of the right echo distribution inferior right cerebral infarct) PD Medical Decision Making - ED course ED course: 69-year-old male presents emergency department for severe dizziness nausea vomiting and inability to walk this morning that happened at 5 AM. Went back to bed and awoke feeling better but his told him he should come into the ER. Given that he was here just 2 days ago there is a concern for stroke see below for CT results of 06/04 in comparison to 06/06. 06/04: Mild to moderate sized subacute infarct involving the posterior medial left temporal lobe. Consider embolic event, either from the anterior posterior circulation. 06/06: Expected evolution of subacute left posterior medial temporal lobe infarct with increased cytotoxic edema and development of some mass effect on the posterior horn of the left lateral ventricle. Interval widening of the territory of a right echo distribution inferior right cerebellar infarct, also subacute. Spoke with telestroke who looked at the imaging and says that patient is most likely experiencing new infarcts because of patient's abnormal CTA from a couple days ago that revealed consistent with right vertebral artery occlusion. Telestroke doctor is recommending that patient be transferred to a hospital that has in-house neurology for more extensive neurology workup which is not something we are able to do at this critical access hospital. Patient did not have an echocardiogram while he was here EKG does not reveal any A-fib. Labs are complete for further evaluation and reveal no significant electrolyte abnormalities that could be contributing to patient's dizziness symptoms and no anemia. He was given 325 mg of aspirin p.o. I then spoke with [facility] neurology who recommends that patient be transferred to [facility] who would be a better fit for patient's more specialty neurology services that he is requiring. NIH score for myself is 0 report has been given to hospitalist at [facility] as well as neurologist Dr. Reese who is graciously agreed to accept the patient. All images have been sent over and patient will be sent with CDs of all images that were complete in this hospital from 06/04 till now. Report given to oncoming doctor who is further managing the patient's care until bed is available at [facility]. Patient is aware of these updates he has agreed to be transferred and is aware that he will be most likely waiting in the ER for a while until a bed becomes available. He will go via ambulance. Departure - Departure Disposition: 02 Transfer Acute Care Hosp Forms: PCP List
[2024-06-06] MEDS: ASPIRIN 325 MG TABLET PO STA (16:19)
[2024-06-07 06:00] VITALS: BP 127/83; O2SAT 98
== END 2024-06-07 06:06 | disposition short-term general hospital (02) ==
LOC: ED 13:40
DX: R42 Dizziness and giddiness (principal); R11.2 Nausea with vomiting, unspecified; I65.01 Occlusion and stenosis of right vertebral artery; I10 Essential (primary) hypertension
CPT/HCPCS: 36415; 70450; 80053; 83690; 83735; 84443; 85025; 93005; 99285; A9270

== ENCOUNTER 2024-06-07 05:40 | Outpatient (CLI) | payer MEDICARE | END 2024-06-07 23:59 | disposition short-term general hospital (02) | LOC: EMS 05:40 | PROVIDERS: ATTEND Emergency Medicine | DX: I63.9 Cerebral infarction, unspecified (principal) | CPT/HCPCS: A0425; A0428 ==